=== PATIENT | female | born 1955 | race Caucasian/White ===

== ENCOUNTER → 2018-02-24 | Outpatient (CLI) | payer OTHER ==
[2018-03-01 13:19] LABS: HPV Genotype 16 Not Detected (NOTDET); HPV Genotype 18 Not Detected (NOTDET)
[2018-03-09 10:56] LABS: HPV High Risk Other Not Detected (NOTDET)
== END ==
LOC: LAB 11:47 → LAB SHORT 11:47
PROVIDERS: Registered Nurse
DX: Z12.4 Encounter for screening for malignant neoplasm of cervix (principal)
CPT/HCPCS: 87624; G0123